=== PATIENT | male | born 1975 | race Caucasian/White ===

== ENCOUNTER 2017-08-22 13:58 | Inpatient (IN) | payer OTHER ==
[2017-08-22 17:41] VITALS: BMI 22.8
--- NOTE | 2017-08-22 18:27 | HP ---
Admission ROS [facility] Chief Complaint: i want to go to rehab Allergies/Adverse Reactions: Allergies Allergy/AdvReac Type Severity Reaction Status Date / Time No Known Allergies Allergy Verified 08/22/17 18:17 History of Present Illness: 42 years old male with long history of pcp nicotine dependence has gerd diabetes ii and depression is admitted to rehab Exam Limitations: No Limitations - Ebola screening Have you traveled outside of the country in the last 21 days: No Have you had contact with anyone from an Ebola affected area: No Have you been sick,other than usual withdrawal symptoms: No Do you have a fever: No - Review of Systems Constitutional: Loss of Appetite, Unintentional Wgt. Loss, Unexplained wgt Loss EENT: reports: No Symptoms Reported Respiratory: reports: No Symptoms reported Cardiac: reports: No Symptoms Reported GI: reports: Poor Appetite, Indigestion : reports: No Symptoms Reported Musculoskeletal: reports: No Symptoms Reported Integumentary: reports: No Symptoms Reported Neuro: reports: No Symptoms reported Endocrine: reports: No Symptoms Reported Hematology: reports: No Symptoms Reported Psychiatric: reports: Judgement Intact, Orientated x3, Anxious, Depressed Other Systems: Reviewed and Negative Patient History - Patient Medical History Hx Anemia: No Hx Asthma: No Hx Chronic Obstructive Pulmonary Disease (COPD): No Hx Cancer: No Hx Cardiac Disorders: No Hx Congestive Heart Failure: No Hx Hypertension: No Hx Hypercholesterolemia: No Hx Pacemaker: No HX Cerebrovascular Accident: No Hx Seizures: No Hx Dementia: No Hx Diabetes: Yes Hx Gastrointestinal Disorders: Yes Hx Liver Disease: No Hx Genitourinary Disorders: No Hx Sexually Transmitted Disorders: No Hx Renal Disease (ESRD): No Hx Thyroid Disease: No Hx Human Immunodeficiency Virus (HIV): No Hx Hepatitis C: No Hx Depression: Yes Hx Suicide Attempt: No Hx Bipolar Disorder: No Hx Schizophrenia: No - Patient Surgical History Past Surgical History: Yes Hx Neurologic Surgery: No Hx Cataract Extraction: No Hx Cardiac Surgery: No Hx Lung Surgery: No Hx Breast Surgery: No Hx Breast Biopsy: No Hx Abdominal Surgery: No Hx Appendectomy: No Hx Cholecystectomy: No Hx Genitourinary Surgery: No Hx Orthopedic Surgery: Yes (low jaw 2008 fx) Anesthesia Reaction: No - PPD History Previous Implant?: Yes Documented Results: Negative w/o proof Implanted On Prior [facility] Admission?: No PPD to be Administered?: Yes - Smoking Cessation Smoking history: Current every day smoker Have you smoked in the past 12 months: Yes Aproximately how many cigarettes per day: 5 Cigars Per Day: 0 Hx Chewing Tobacco Use: No Initiated information on smoking cessation: Yes 'Breaking Loose' booklet given: 08/22/17 - Substance & Tx. History Hx Alcohol Use: No Hx Substance Use: Yes (pcp) Substance Use Type: None Hx Substance Use Treatment: Yes ([facility]) - Substances Abused PCP Route: Smoking Frequency: Daily Amount used: blund Age of first use: 15 Date of Last Use: 08/21/17 Family Disease History - Family Disease History Family Disease History: Diabetes: Father, Mother, Brother, Sister, Heart Disease : Father, Mother, Respiratory: Father Admission Physical Exam S - Vital Signs Vital Signs: Vital Signs - 24 hr 08/22/17 17:38 Temperature 98.2 F Pulse Rate 98 H Respiratory 20 Rate Blood Pressure 133/81 - Physical General Appearance: Yes: No Apparent Distress, Appropriately Dressed, Thin HEENTM: Yes: Hearing grossly Normal, Normal ENT Inspection, Normocephalic, Normal Voice Respiratory: Yes: Chest Non-Tender, Lungs Clear, Normal Breath Sounds, No Respiratory Distress, No Accessory Muscle Use Neck: Yes: Supple, Trachea in good position Breast: Yes: Breasts Symetrical, Other Cardiology: Yes: S1, S2, Tachycardia Abdominal: Yes: Normal Bowel Sounds, Non Tender, Soft Genitourinary: Yes: Within Normal Limits Back: Yes: Normal Inspection Musculoskeletal: Yes: full range of Motion, Gait Steady Extremities: Yes: Normal Inspection, Normal Range of Motion, Non-Tender Neurological: Yes: Fully Oriented, Alert, Motor Strength 5/5, Normal Response, Depressed Affect Integumentary: Yes: Warm Lymphatic: Yes: Within Normal Limits - Diagnostic (1) PCP dependence Current Visit: Yes Status: Acute (2) Nicotine dependence Current Visit: Yes Status: Acute Qualifiers: Nicotine product type: cigarettes Substance use status: in withdrawal Qualified Code(s): F17.213 - Nicotine dependence, cigarettes, with withdrawal (3) Diabetes mellitus, type II, insulin dependent Current Visit: Yes Status: Chronic (4) GERD (gastroesophageal reflux disease) Current Visit: Yes Status: Chronic Qualifiers: Esophagitis presence: without esophagitis Qualified Code(s): K21.9 - Gastro -esophageal reflux disease without esophagitis (5) Anxiety and depression Current Visit: Yes Status: Suspected Cleared for Admission [facility] - Detox or Rehab [facility] Level of Care: Observation Bed Detox Regimen/Protocol: Not Applicable Claeared for Rehab Admission: Yes [facility] Breath Alcohol Content Breath Alcohol Content: 0 Urine Drug Screen - Results Drug Screen Negative: No Urine Drug Screen Results: PCP-Phencyclidine Inpatient Rehab Admission - Initial Determination Are CD services needed?: Yes Free of communicable disease: Yes Not in need of hospitalization: Yes - Rehab Admission Criteria Previous failed treatment: Yes Poor recovery environment: Yes Comorbidities: Yes Lacks judgement: No Patient is meeting Inpatient Rehab admission criteria:: Yes
[2017-08-22] MEDS ORDERED: ACETAMINOPHEN 325 MG TABLET (FP) PO PRN (18:33)
[2017-08-22] MEDS ORDERED: guaiFENesin/D-METHORPHAN HB 10 ML UNIT-DOSE CUPS PO PRN (18:33)
[2017-08-22] MEDS ORDERED: MENTHOL/PHENOL 1 EACH UD MM PRN (18:33)
[2017-08-22] MEDS ORDERED: MAG HYDROX/AL HYDROX/SIMETH 30 ML UNIT-DOSE CUP PO PRN (18:33)
[2017-08-22] MEDS ORDERED: MAGNESIUM CITRATE 300 ML BOTTLE PO PRN (18:33)
[2017-08-22] MEDS ORDERED: LOPERAMIDE HCL 2 MG CAPSULE PO PRN (18:33)
[2017-08-22] MEDS ORDERED: P-EPHED 60MG/TRIPROLIDI 2.5MG TABLET PO PRN (18:33)
[2017-08-22] MEDS ORDERED: MAGNESIUM HYDROX 2400MG/30ML ORAL SUSPENSION 30 ML CUP PO PRN (18:33)
[2017-08-22] MEDS ORDERED: TUBERCULIN PPD 5 TU/0.1ML VIAL ID ONE (20:18)
--- NOTE | 2017-08-22 21:33 | PN ---
[facility] Progress Note Note: Psychiatry Attending's on-call note : Made aware of patient's admission to [address] [place] [address]. Asked to enter orders for abilify 5 mg po daily. Spoke to patient (telephone). Mr Mccollum confirmed medication. Diagnosis : Bipolar Disorder. Last taken on 08/22/17. Pharmacy claims of 08/11/17 : seen. Discussed with patient. No reported history of adverse effects. Abilify 5 mg po daily.Ordered.
[2017-08-22] MEDS: RANITIDINE HCL 150 MG TABLET (FP) PO SCH (21:47)
[2017-08-22] MEDS: THIAMINE HCL 100 MG TABLET (FP) PO SCH (21:47)
--- NOTE | 2017-08-22 23:05 | PN ---
S Progress Note Note: suboxone 8/2 mg sl tid verified by the nurse with the pharmacist last dose 08/21/17 nurse reports that the patient wants to begin suboxone 08/23/17
[2017-08-22 23:24] LABS: URINE APPEARANCE CLEAR; URINE BILIRUBIN NEGATIVE (NEGATIVE); URINE BLOOD NEGATIVE (NEGATIVE); URINE COLOR YELLOW; URINE GLUCOSE (UA) 3+ (NEGATIVE); URINE KETONE NEGATIVE (NEGATIVE); URINE LEUK ESTERASE NEGATIVE (NEGATIVE); URINE NITRITE NEGATIVE (NEGATIVE); URINE PROTEIN NEGATIVE (NEGATIVE); URINE UROBILINOGEN NEGATIVE mg/dL (0.2-1.0)
[2017-08-23] MEDS ORDERED: INSULIN SLIDING SCALE (NOVOLOG) 1 VIAL SQ SCH (07:00)
[2017-08-23] MEDS: INSULIN (NOVOLOG MIX 70/30) 100 UNITS/ML MDV SQ SCH ×2 (07:17→17:17)
--- NOTE | 2017-08-23 09:38 | EKG ---
Test Reason : Blood Pressure : / mmHG Vent. Rate : 096 BPM Atrial Rate : 096 BPM P-R Int : 144 ms QRS Dur : 088 ms QT Int : 322 ms P-R-T Axes : 057 084 015 degrees QTc Int : 406 ms NORMAL SINUS RHYTHM RIGHT ATRIAL ENLARGEMENT BORDERLINE ECG NO PREVIOUS ECGS AVAILABLE Confirmed by MEIR ZHENG, EVGENY ([id number]) on 08/23/2017 9:37:47 AM Referred By: Confirmed By:EVGENY WORLEY MD
[2017-08-23] MEDS: BUPRENORPHINE/NALOXONE 8 MG/2 MG FILM PACKET SL SCH ×3 (09:56→21:31)
[2017-08-23] MEDS: PRENATAL VITAMINS W/ FOLIC ACID TABLET (FP) PO SCH (09:56)
[2017-08-23] MEDS: ARIPiprazole 5 MG TABLET (FP) PO SCH (09:56)
[2017-08-23] MEDS: RANITIDINE HCL 150 MG TABLET (FP) PO SCH ×2 (09:56→21:31)
[2017-08-23] MEDS: NICOTINE 14 MG/24 HOURS TOPICAL PATCH TD SCH (09:57)
[2017-08-23] MEDS: NICOTINE POLACRILEX 2 MG GUM BC PRN ×2 (09:57→20:45)
[2017-08-23 10:23] LABS: HEMATOCRIT 45.6 % (35.4-49); HEMOGLOBIN 14.6 GM/dL (11.7-16.9); MCH 27.9 pg (25.7-33.7); MCHC 31.9 g/dl (32.0-35.9); MEAN CELL VOLUME 87.5 fl (80-96); MEAN PLT VOLUME 8.5 fl (7.5-11.1); PLATELET COUNT 407 K/MM3 (134-434); RBC 5.21 M/mm3 (4.00-5.60); RDW 13.2 % (11.9-15.9); WHITE BLOOD COUNT 14.9 K/mm3 (4.0-10.0)
[2017-08-23 10:28] LABS: CHLORIDE 99 mmol/L (98-107); POTASSIUM 4.4 mmol/L (3.5-5.1); SODIUM 134 mmol/L (136-145)
[2017-08-23 10:38] LABS: ALBUMIN 3.5 g/dl (3.4-5.0); ALK PHOS 145 U/L (45-117); ANION GAP 8 (8-16); BILIRUBIN,TOTAL 0.5 mg/dL (0.2-1.0); BLOOD UREA NITROGEN 12 mg/dL (7-18); CALCIUM 9.1 mg/dL (8.5-10.1); CO2 27 mmol/L (21-32); SGOT/AST 10 U/L (15-37); SGPT/ALT 29 U/L (12-78); TOT PROT 7.1 g/dl (6.4-8.2)
[2017-08-23 11:05] LABS: GLUCOSE,RANDOM 415 mg/dL (74-106)
[2017-08-23] MEDS ORDERED: INSULIN (NOVOLOG) ASPART 100 UNITS/ML 10ML VIAL ONE (17:00)
[2017-08-23] MEDS: INSULIN SLIDING SCALE (NOVOLOG) 1 VIAL SQ SCH (17:01)
[2017-08-23] MEDS: THIAMINE HCL 100 MG TABLET (FP) PO SCH (21:31)
[2017-08-24] MEDS ORDERED: INSULIN (NOVOLOG MIX 70/30) 100 UNITS/ML MDV SQ ONE (05:44)
[2017-08-24] MEDS: BUPRENORPHINE/NALOXONE 8 MG/2 MG FILM PACKET SL SCH ×3 (06:12→21:20)
[2017-08-24] MEDS: NICOTINE POLACRILEX 2 MG GUM BC PRN ×3 (06:19→20:20)
[2017-08-24] MEDS ORDERED: INSULIN (NOVOLOG) ASPART 100 UNITS/ML 10ML VIAL ONE ×2 (06:44→17:08)
[2017-08-24] MEDS: INSULIN SLIDING SCALE (NOVOLOG) 1 VIAL SQ SCH ×2 (06:45→17:01)
[2017-08-24] MEDS: INSULIN (NOVOLOG MIX 70/30) 100 UNITS/ML MDV SQ SCH ×2 (07:34→17:00)
--- NOTE | 2017-08-24 08:02 | HP ---
Psychiatrist Admission - Data Date of interview: 08/24/17 Admission source: [facility] Identifying data: This is the first 5N inpatient rehabilitation admission for this 42 year old male single unemployed and residing with his mother. Medical History: IDDM, acid reflux, hard of hearing in left ear, low jaw surgery in 2007, smokes cigaretets 5 a day. Psychiatric History: Patient reports first psychiatric contact as a child, states he was seen by a psychiatrist to address behavioral issues, was in therapy. In 2013 met with a psychiatrist in outpatient setting to address depression and anxiety, was diagnosed as Bipolar and started treatment with psychotropics, he currently on Prestiq unknow dosage and Abilify 5 mg po daily, he reports tried seroquel trazodone, effexor in the past, reports no history of psychiatric hospitalizations. Sees the psychiatrist at [facility] . Physical/Sexual Abuse/Trauma History: Denies history of sexual, physical and verbal abuse. Additional Comment: x 2 misdeminors, on parole till 2018 for drug possesion. Vital Signs: Vital Signs - 24 hr 08/24/17 08/24/17 00:45 06:41 Temperature 98.5 F Pulse Rate 90 Respiratory 18 18 Rate Blood Pressure 127/80 Allergies/Adverse Reactions: Allergies Allergy/AdvReac Type Severity Reaction Status Date / Time No Known Allergies Allergy Verified 08/22/17 18:17 Date of last physical exam: 08/22/17 Concur with the findings of this exam: Yes - Substance Abuse/Tx History Hx Alcohol Use: No Hx Substance Use: Yes (PCP , started at age of 15, daily 1 blund ) Hx Substance Use Treatment: Yes (in 2012) Mental Status Exam - Mental Status Exam Alert and Oriented to: Time, Place, Person Cognitive Function: Grossly Intact Patient Appearance: Well Groomed Mood: Depressed, Sad, Anxious Affect: Labile (tearful (I miss my mom")) Patient Behavior: Appropriate, Cooperative Speech Pattern: Appropriate Voice Loudness: Normal Thought Disorder: Paranoid Ideation (on and off) Hallucinations: None Suicidal Ideation: None Homicidal Ideation: None Insight/Judgement: Good Sleep: Well Appetite: Good Muscle strength/Tone: Normal Gait/Station: Normal Psychiatric Findings - Problem List ([place] 1, 2,3) (1) Bipolar II disorder Current Visit: Yes Status: Acute (2) Nicotine dependence Current Visit: Yes Status: Acute Qualifiers: Nicotine product type: cigarettes Substance use status: in withdrawal Qualified Code(s): F17.213 - Nicotine dependence, cigarettes, with withdrawal (3) PCP dependence Current Visit: Yes Status: Acute (4) Diabetes mellitus, type II, insulin dependent Current Visit: Yes Status: Chronic (5) GERD (gastroesophageal reflux disease) Current Visit: Yes Status: Chronic Qualifiers: Esophagitis presence: without esophagitis Qualified Code(s): K21.9 - Gastro -esophageal reflux disease without esophagitis - Initial Treatment Plan Initial Treatment Plan: willcontinue Abilify 5 mg po daily, add Effexor 37.5 mg podaily(Prestiq not in formulary), monitor progress as needed.
[2017-08-24] MEDS: PRENATAL VITAMINS W/ FOLIC ACID TABLET (FP) PO SCH (10:08)
[2017-08-24] MEDS: ARIPiprazole 5 MG TABLET (FP) PO SCH (10:08)
[2017-08-24] MEDS: NICOTINE 14 MG/24 HOURS TOPICAL PATCH TD SCH (10:08)
[2017-08-24] MEDS: RANITIDINE HCL 150 MG TABLET (FP) PO SCH ×2 (10:08→21:20)
[2017-08-24] MEDS ORDERED: VENLAFAXINE HCL 37.5 MG TABLET PO ONE (11:43)
[2017-08-24] MEDS: THIAMINE HCL 100 MG TABLET (FP) PO SCH (21:20)
[2017-08-25] MEDS: BUPRENORPHINE/NALOXONE 8 MG/2 MG FILM PACKET SL SCH ×3 (06:33→21:44)
[2017-08-25] MEDS: INSULIN (NOVOLOG MIX 70/30) 100 UNITS/ML MDV SQ SCH ×2 (06:36→16:52)
[2017-08-25] MEDS: INSULIN SLIDING SCALE (NOVOLOG) 1 VIAL SQ SCH ×2 (07:08→16:53)
[2017-08-25] MEDS ORDERED: INSULIN (NOVOLOG) ASPART 100 UNITS/ML 10ML VIAL ONE (07:08)
[2017-08-25] MEDS: PRENATAL VITAMINS W/ FOLIC ACID TABLET (FP) PO SCH (10:01)
[2017-08-25] MEDS: VENLAFAXINE HCL 37.5 MG TABLET PO SCH (10:01)
[2017-08-25] MEDS: NICOTINE 14 MG/24 HOURS TOPICAL PATCH TD SCH (10:01)
[2017-08-25] MEDS: RANITIDINE HCL 150 MG TABLET (FP) PO SCH ×2 (10:01→21:44)
[2017-08-25] MEDS: ARIPiprazole 5 MG TABLET (FP) PO SCH (10:01)
[2017-08-25] MEDS: NICOTINE POLACRILEX 2 MG GUM BC PRN ×2 (10:02→16:50)
--- NOTE | 2017-08-25 11:47 | PN ---
[facility] Progress Note (SOAP) Subjective: c/o nause and vomiting 2/2 gastroparesis from diabetes, he has this every once and awhile Objective: 08/25/17 11:46 Vital Signs - 24 hr 08/25/17 08/25/17 08/25/17 00:30 03:30 07:11 Temperature 98.4 F Pulse Rate 89 Respiratory 18 18 18 Rate Blood Pressure 117/74 Laboratory Tests 08/22/17 08/23/17 08/23/17 21:19 06:00 06:00 WBC 14.9 H RBC 5.21 Hgb 14.6 Hct 45.6 MCV 87.5 MCH 27.9 MCHC 31.9 L RDW 13.2 Plt Count 407 MPV 8.5 Sodium 134 L Potassium 4.4 Chloride 99 Carbon Dioxide 27 Anion Gap 8 BUN 12 Creatinine 1.0 Creat Clearance w eGFR > 60 POC Glucometer Random Glucose 415 H* Calcium 9.1 Total Bilirubin 0.5 AST 10 L ALT 29 Alkaline Phosphatase 145 H Total Protein 7.1 Albumin 3.5 Urine Color Yellow Urine Appearance Clear Urine pH 5.0 Ur Specific [place] 1.028 Urine Protein Negative Urine Glucose (UA) 3+ H Urine Ketones Negative Urine Blood Negative Urine Nitrite Negative Urine Bilirubin Negative Urine Urobilinogen Negative Ur Leukocyte Esterase Negative RPR Titer HIV 1&2 Antibody Screen HIV P24 Antigen 08/23/17 08/23/17 08/23/17 06:00 06:00 06:26 WBC RBC Hgb Hct MCV MCH MCHC RDW Plt Count MPV Sodium Potassium Chloride Carbon Dioxide Anion Gap BUN Creatinine Creat Clearance w eGFR POC Glucometer 308 Random Glucose Calcium Total Bilirubin AST ALT Alkaline Phosphatase Total Protein Albumin Urine Color Urine Appearance Urine pH Ur Specific [place] Urine Protein Urine Glucose (UA) Urine Ketones Urine Blood Urine Nitrite Urine Bilirubin Urine Urobilinogen Ur Leukocyte Esterase RPR Titer Nonreactive HIV 1&2 Antibody Screen Negative HIV P24 Antigen Negative 08/23/17 08/24/17 08/24/17 16:58 06:11 16:59 WBC RBC Hgb Hct MCV MCH MCHC RDW Plt Count MPV Sodium Potassium Chloride Carbon Dioxide Anion Gap BUN Creatinine Creat Clearance w eGFR POC Glucometer 428 175 228 Random Glucose Calcium Total Bilirubin AST ALT Alkaline Phosphatase Total Protein Albumin Urine Color Urine Appearance Urine pH Ur Specific [place] Urine Protein Urine Glucose (UA) Urine Ketones Urine Blood Urine Nitrite Urine Bilirubin Urine Urobilinogen Ur Leukocyte Esterase RPR Titer HIV 1&2 Antibody Screen HIV P24 Antigen 08/25/17 06:31 WBC RBC Hgb Hct MCV MCH MCHC RDW Plt Count MPV Sodium Potassium Chloride Carbon Dioxide Anion Gap BUN Creatinine Creat Clearance w eGFR POC Glucometer 195 Random Glucose Calcium Total Bilirubin AST ALT Alkaline Phosphatase Total Protein Albumin Urine Color Urine Appearance Urine pH Ur Specific [place] Urine Protein Urine Glucose (UA) Urine Ketones Urine Blood Urine Nitrite Urine Bilirubin Urine Urobilinogen Ur Leukocyte Esterase RPR Titer HIV 1&2 Antibody Screen HIV P24 Antigen glucose better comtrolled Assessment: 08/25/17 11:47 gastroparesis 2/2 dm, control glucose, water, repeat labs, zofran for nausea
[2017-08-25] MEDS ORDERED: ONDANSETRON *ODT* 4 MG TABLET SL ONE (12:10)
[2017-08-25] MEDS: ONDANSETRON *ODT* 4 MG TABLET SL PRN (20:11)
[2017-08-25] MEDS: THIAMINE HCL 100 MG TABLET (FP) PO SCH (21:44)
[2017-08-26] MEDS: BUPRENORPHINE/NALOXONE 8 MG/2 MG FILM PACKET SL SCH ×3 (07:07→21:24)
[2017-08-26] MEDS: INSULIN SLIDING SCALE (NOVOLOG) 1 VIAL SQ SCH ×2 (07:29→16:42)
[2017-08-26] MEDS: INSULIN (NOVOLOG MIX 70/30) 100 UNITS/ML MDV SQ SCH ×2 (07:56→16:41)
[2017-08-26] MEDS: RANITIDINE HCL 150 MG TABLET (FP) PO SCH ×2 (09:51→21:24)
[2017-08-26] MEDS: ARIPiprazole 5 MG TABLET (FP) PO SCH (09:51)
[2017-08-26] MEDS: PRENATAL VITAMINS W/ FOLIC ACID TABLET (FP) PO SCH (09:51)
[2017-08-26] MEDS: NICOTINE 14 MG/24 HOURS TOPICAL PATCH TD SCH (09:52)
[2017-08-26] MEDS: VENLAFAXINE HCL 37.5 MG TABLET PO SCH (09:52)
[2017-08-26 10:48] LABS: CHLORIDE 100 mmol/L (98-107); POTASSIUM 4.7 mmol/L (3.5-5.1); SODIUM 134 mmol/L (136-145)
[2017-08-26 10:58] LABS: ANION GAP 5 (8-16); BLOOD UREA NITROGEN 16 mg/dL (7-18); CALCIUM 8.4 mg/dL (8.5-10.1); CO2 29 mmol/L (21-32); CREATININE 0.8 mg/dL (0.7-1.3); GLUCOSE,RANDOM 162 mg/dL (74-106)
[2017-08-26 11:04] LABS: BASO % 0.7 % (0-2.0); EOS % 1.7 % (0-4.5); HEMATOCRIT 42.5 % (35.4-49); LYMPH % 21.6 % (8-40); MCH 28.4 pg (25.7-33.7); MCHC 32.9 g/dl (32.0-35.9); MEAN CELL VOLUME 86.3 fl (80-96); MEAN PLT VOLUME 8.1 fl (7.5-11.1); MONO % 4.4 % (3.8-10.2); NEUT % 71.6 % (42.8-82.8); PLATELET COUNT 372 K/MM3 (134-434); RBC 4.92 M/mm3 (4.00-5.60); RDW 13.5 % (11.9-15.9); WHITE BLOOD COUNT 12.7 K/mm3 (4.0-10.0)
[2017-08-26] MEDS: THIAMINE HCL 100 MG TABLET (FP) PO SCH (21:24)
[2017-08-27] MEDS: BUPRENORPHINE/NALOXONE 8 MG/2 MG FILM PACKET SL SCH ×3 (05:58→21:21)
[2017-08-27] MEDS: INSULIN (NOVOLOG MIX 70/30) 100 UNITS/ML MDV SQ SCH ×2 (05:59→16:47)
[2017-08-27] MEDS: INSULIN SLIDING SCALE (NOVOLOG) 1 VIAL SQ SCH ×2 (06:00→16:48)
[2017-08-27] MEDS: NICOTINE 14 MG/24 HOURS TOPICAL PATCH TD SCH (09:09)
[2017-08-27] MEDS: VENLAFAXINE HCL 37.5 MG TABLET PO SCH (09:09)
[2017-08-27] MEDS: RANITIDINE HCL 150 MG TABLET (FP) PO SCH ×2 (09:09→21:21)
[2017-08-27] MEDS: ARIPiprazole 5 MG TABLET (FP) PO SCH (09:09)
[2017-08-27] MEDS: NICOTINE POLACRILEX 2 MG GUM BC PRN (09:10)
[2017-08-27] MEDS: PRENATAL VITAMINS W/ FOLIC ACID TABLET (FP) PO SCH (09:39)
[2017-08-27] MEDS: ONDANSETRON *ODT* 4 MG TABLET SL PRN (19:51)
[2017-08-27] MEDS: THIAMINE HCL 100 MG TABLET (FP) PO SCH (21:21)
[2017-08-28] MEDS: BUPRENORPHINE/NALOXONE 8 MG/2 MG FILM PACKET SL SCH ×3 (06:35→21:18)
[2017-08-28] MEDS: INSULIN (NOVOLOG MIX 70/30) 100 UNITS/ML MDV SQ SCH ×2 (06:37→16:47)
[2017-08-28] MEDS: INSULIN SLIDING SCALE (NOVOLOG) 1 VIAL SQ SCH ×2 (07:04→16:48)
[2017-08-28] MEDS: ARIPiprazole 5 MG TABLET (FP) PO SCH (09:55)
[2017-08-28] MEDS: PRENATAL VITAMINS W/ FOLIC ACID TABLET (FP) PO SCH (09:55)
[2017-08-28] MEDS: RANITIDINE HCL 150 MG TABLET (FP) PO SCH ×2 (09:55→21:18)
[2017-08-28] MEDS: VENLAFAXINE HCL 37.5 MG TABLET PO SCH (09:55)
[2017-08-28] MEDS: NICOTINE 14 MG/24 HOURS TOPICAL PATCH TD SCH (09:55)
[2017-08-28] MEDS: NICOTINE POLACRILEX 2 MG GUM BC PRN (09:57)
[2017-08-28] MEDS: THIAMINE HCL 100 MG TABLET (FP) PO SCH (21:18)
[2017-08-29] MEDS: BUPRENORPHINE/NALOXONE 8 MG/2 MG FILM PACKET SL SCH ×3 (06:28→21:30)
[2017-08-29] MEDS: INSULIN (NOVOLOG MIX 70/30) 100 UNITS/ML MDV SQ SCH ×2 (06:28→16:59)
[2017-08-29] MEDS: INSULIN SLIDING SCALE (NOVOLOG) 1 VIAL SQ SCH ×2 (06:30→16:58)
[2017-08-29] MEDS: ARIPiprazole 5 MG TABLET (FP) PO SCH (10:23)
[2017-08-29] MEDS: RANITIDINE HCL 150 MG TABLET (FP) PO SCH ×2 (10:23→21:30)
[2017-08-29] MEDS: VENLAFAXINE HCL 37.5 MG TABLET PO SCH (10:23)
[2017-08-29] MEDS: PRENATAL VITAMINS W/ FOLIC ACID TABLET (FP) PO SCH (10:23)
[2017-08-29] MEDS: NICOTINE 14 MG/24 HOURS TOPICAL PATCH TD SCH (10:24)
[2017-08-29] MEDS ORDERED: INSULIN (NOVOLOG) ASPART 100 UNITS/ML 10ML VIAL ONE (16:57)
[2017-08-29] MEDS: THIAMINE HCL 100 MG TABLET (FP) PO SCH (21:30)
[2017-08-30] MEDS: BUPRENORPHINE/NALOXONE 8 MG/2 MG FILM PACKET SL SCH ×3 (05:56→21:29)
[2017-08-30] MEDS: INSULIN (NOVOLOG MIX 70/30) 100 UNITS/ML MDV SQ SCH ×2 (07:54→17:22)
[2017-08-30] MEDS: INSULIN SLIDING SCALE (NOVOLOG) 1 VIAL SQ SCH ×2 (07:55→17:25)
[2017-08-30] MEDS: PRENATAL VITAMINS W/ FOLIC ACID TABLET (FP) PO SCH (10:20)
[2017-08-30] MEDS: RANITIDINE HCL 150 MG TABLET (FP) PO SCH ×2 (10:20→21:28)
[2017-08-30] MEDS: VENLAFAXINE HCL 37.5 MG TABLET PO SCH (10:20)
[2017-08-30] MEDS: ARIPiprazole 5 MG TABLET (FP) PO SCH (10:20)
[2017-08-30] MEDS: NICOTINE 14 MG/24 HOURS TOPICAL PATCH TD SCH (10:21)
[2017-08-30] MEDS: TOLNAFTATE 1% CREAM 15 GM TUBE TP SCH ×2 (14:41→21:29)
[2017-08-30] MEDS: BACITRACIN 0.9 GM PACKET TP SCH (14:41)
[2017-08-30] MEDS: THIAMINE HCL 100 MG TABLET (FP) PO SCH (21:28)
[2017-08-31] MEDS: BUPRENORPHINE/NALOXONE 8 MG/2 MG FILM PACKET SL SCH ×3 (06:08→21:26)
[2017-08-31] MEDS: INSULIN (NOVOLOG MIX 70/30) 100 UNITS/ML MDV SQ SCH ×2 (07:24→16:40)
[2017-08-31] MEDS: INSULIN SLIDING SCALE (NOVOLOG) 1 VIAL SQ SCH ×2 (07:25→16:41)
[2017-08-31] MEDS: VENLAFAXINE HCL 37.5 MG TABLET PO SCH (10:08)
[2017-08-31] MEDS: PRENATAL VITAMINS W/ FOLIC ACID TABLET (FP) PO SCH (10:08)
[2017-08-31] MEDS: RANITIDINE HCL 150 MG TABLET (FP) PO SCH ×2 (10:08→21:25)
[2017-08-31] MEDS: ARIPiprazole 5 MG TABLET (FP) PO SCH (10:08)
[2017-08-31] MEDS: TOLNAFTATE 1% CREAM 15 GM TUBE TP SCH ×2 (10:09→21:26)
[2017-08-31] MEDS: NICOTINE POLACRILEX 2 MG GUM BC PRN (10:09)
[2017-08-31] MEDS: NICOTINE 14 MG/24 HOURS TOPICAL PATCH TD SCH (10:09)
[2017-08-31] MEDS: BACITRACIN 0.9 GM PACKET TP SCH (10:09)
[2017-08-31] MEDS ORDERED: SIMETHICONE 80 MG TAB.CHEW (FP) PO PRN (11:39)
--- NOTE | 2017-08-31 11:42 | PN ---
[facility] Progress Note (SOAP) Subjective: C/O CONTINUED INDIGESTION, ZOFRAN NOT WORKING, FTOENAIL FELL OFF STIL PAINFULL Objective: 08/31/17 11:40 Vital Signs - 24 hr 08/30/17 08/31/17 08/31/17 23:09 00:30 03:30 Temperature Pulse Rate 77 Respiratory 18 18 Rate Blood Pressure 104/70 08/31/17 07:19 Temperature 97.8 F Pulse Rate 74 Respiratory 18 Rate Blood Pressure 122/68 Laboratory Tests 08/22/17 08/23/17 08/23/17 21:19 06:00 06:00 WBC 14.9 H RBC 5.21 Hgb 14.6 Hct 45.6 MCV 87.5 MCH 27.9 MCHC 31.9 L RDW 13.2 Plt Count 407 MPV 8.5 Neutrophils % Lymphocytes % Monocytes % Eosinophils % Basophils % Sodium 134 L Potassium 4.4 Chloride 99 Carbon Dioxide 27 Anion Gap 8 BUN 12 Creatinine 1.0 Creat Clearance w eGFR > 60 POC Glucometer Random Glucose 415 H* Calcium 9.1 Total Bilirubin 0.5 AST 10 L ALT 29 Alkaline Phosphatase 145 H Total Protein 7.1 Albumin 3.5 Urine Color Yellow Urine Appearance Clear Urine pH 5.0 Ur Specific [place] 1.028 Urine Protein Negative Urine Glucose (UA) 3+ H Urine Ketones Negative Urine Blood Negative Urine Nitrite Negative Urine Bilirubin Negative Urine Urobilinogen Negative Ur Leukocyte Esterase Negative RPR Titer HIV 1&2 Antibody Screen HIV P24 Antigen 08/23/17 08/23/17 08/23/17 06:00 06:00 06:26 WBC RBC Hgb Hct MCV MCH MCHC RDW Plt Count MPV Neutrophils % Lymphocytes % Monocytes % Eosinophils % Basophils % Sodium Potassium Chloride Carbon Dioxide Anion Gap BUN Creatinine Creat Clearance w eGFR POC Glucometer 308 Random Glucose Calcium Total Bilirubin AST ALT Alkaline Phosphatase Total Protein Albumin Urine Color Urine Appearance Urine pH Ur Specific [place] Urine Protein Urine Glucose (UA) Urine Ketones Urine Blood Urine Nitrite Urine Bilirubin Urine Urobilinogen Ur Leukocyte Esterase RPR Titer Nonreactive HIV 1&2 Antibody Screen Negative HIV P24 Antigen Negative 08/23/17 08/24/17 08/24/17 16:58 06:11 16:59 WBC RBC Hgb Hct MCV MCH MCHC RDW Plt Count MPV Neutrophils % Lymphocytes % Monocytes % Eosinophils % Basophils % Sodium Potassium Chloride Carbon Dioxide Anion Gap BUN Creatinine Creat Clearance w eGFR POC Glucometer 428 175 228 Random Glucose Calcium Total Bilirubin AST ALT Alkaline Phosphatase Total Protein Albumin Urine Color Urine Appearance Urine pH Ur Specific [place] Urine Protein Urine Glucose (UA) Urine Ketones Urine Blood Urine Nitrite Urine Bilirubin Urine Urobilinogen Ur Leukocyte Esterase RPR Titer HIV 1&2 Antibody Screen HIV P24 Antigen 08/25/17 08/25/17 08/26/17 06:31 16:49 05:42 WBC RBC Hgb Hct MCV MCH MCHC RDW Plt Count MPV Neutrophils % Lymphocytes % Monocytes % Eosinophils % Basophils % Sodium Potassium Chloride Carbon Dioxide Anion Gap BUN Creatinine Creat Clearance w eGFR POC Glucometer 195 181 94 Random Glucose Calcium Total Bilirubin AST ALT Alkaline Phosphatase Total Protein Albumin Urine Color Urine Appearance Urine pH Ur Specific [place] Urine Protein Urine Glucose (UA) Urine Ketones Urine Blood Urine Nitrite Urine Bilirubin Urine Urobilinogen Ur Leukocyte Esterase RPR Titer HIV 1&2 Antibody Screen HIV P24 Antigen 08/26/17 08/26/17 08/26/17 08:00 08:00 16:41 WBC 12.7 H RBC 4.92 Hgb 14.0 Hct 42.5 MCV 86.3 MCH 28.4 MCHC 32.9 RDW 13.5 Plt Count 372 MPV 8.1 Neutrophils % 71.6 Lymphocytes % 21.6 Monocytes % 4.4 Eosinophils % 1.7 Basophils % 0.7 Sodium 134 L Potassium 4.7 Chloride 100 Carbon Dioxide 29 Anion Gap 5 L BUN 16 D Creatinine 0.8 Creat Clearance w eGFR POC Glucometer 99 Random Glucose 162 H D Calcium 8.4 L Total Bilirubin AST ALT Alkaline Phosphatase Total Protein Albumin Urine Color Urine Appearance Urine pH Ur Specific [place] Urine Protein Urine Glucose (UA) Urine Ketones Urine Blood Urine Nitrite Urine Bilirubin Urine Urobilinogen Ur Leukocyte Esterase RPR Titer HIV 1&2 Antibody Screen HIV P24 Antigen 08/27/17 08/27/17 08/27/17 05:57 09:08 16:47 WBC RBC Hgb Hct MCV MCH MCHC RDW Plt Count MPV Neutrophils % Lymphocytes % Monocytes % Eosinophils % Basophils % Sodium Potassium Chloride Carbon Dioxide Anion Gap BUN Creatinine Creat Clearance w eGFR POC Glucometer 121 151 139 Random Glucose Calcium Total Bilirubin AST ALT Alkaline Phosphatase Total Protein Albumin Urine Color Urine Appearance Urine pH Ur Specific [place] Urine Protein Urine Glucose (UA) Urine Ketones Urine Blood Urine Nitrite Urine Bilirubin Urine Urobilinogen Ur Leukocyte Esterase RPR Titer HIV 1&2 Antibody Screen HIV P24 Antigen 08/28/17 08/28/17 08/29/17 06:34 16:47 06:28 WBC RBC Hgb Hct MCV MCH MCHC RDW Plt Count MPV Neutrophils % Lymphocytes % Monocytes % Eosinophils % Basophils % Sodium Potassium Chloride Carbon Dioxide Anion Gap BUN Creatinine Creat Clearance w eGFR POC Glucometer 140 191 152 Random Glucose Calcium Total Bilirubin AST ALT Alkaline Phosphatase Total Protein Albumin Urine Color Urine Appearance Urine pH Ur Specific [place] Urine Protein Urine Glucose (UA) Urine Ketones Urine Blood Urine Nitrite Urine Bilirubin Urine Urobilinogen Ur Leukocyte Esterase RPR Titer HIV 1&2 Antibody Screen HIV P24 Antigen 08/29/17 08/30/17 08/30/17 16:55 05:57 16:34 WBC RBC Hgb Hct MCV MCH MCHC RDW Plt Count MPV Neutrophils % Lymphocytes % Monocytes % Eosinophils % Basophils % Sodium Potassium Chloride Carbon Dioxide Anion Gap BUN Creatinine Creat Clearance w eGFR POC Glucometer 222 107 134 Random Glucose Calcium Total Bilirubin AST ALT Alkaline Phosphatase Total Protein Albumin Urine Color Urine Appearance Urine pH Ur Specific [place] Urine Protein Urine Glucose (UA) Urine Ketones Urine Blood Urine Nitrite Urine Bilirubin Urine Urobilinogen Ur Leukocyte Esterase RPR Titer HIV 1&2 Antibody Screen HIV P24 Antigen 08/31/17 06:06 WBC RBC Hgb Hct MCV MCH MCHC RDW Plt Count MPV Neutrophils % Lymphocytes % Monocytes % Eosinophils % Basophils % Sodium Potassium Chloride Carbon Dioxide Anion Gap BUN Creatinine Creat Clearance w eGFR POC Glucometer 171 Random Glucose Calcium Total Bilirubin AST ALT Alkaline Phosphatase Total Protein Albumin Urine Color Urine Appearance Urine pH Ur Specific [place] Urine Protein Urine Glucose (UA) Urine Ketones Urine Blood Urine Nitrite Urine Bilirubin Urine Urobilinogen Ur Leukocyte Esterase RPR Titer HIV 1&2 Antibody Screen HIV P24 Antigen R OTENAIL FELL OFF, NO INFECTION NOTED Assessment: 08/31/17 11:41 GASTROPARESIS INDIGESTION - D/C ZOFRAN CONT ZANTAC, START [PRN SIMETHICONE, BACITACIN DRESSING TO TOENAIL DAILY.
[2017-08-31] MEDS ORDERED: INSULIN (NOVOLOG) ASPART 100 UNITS/ML 10ML VIAL ONE (16:52)
[2017-08-31] MEDS: THIAMINE HCL 100 MG TABLET (FP) PO SCH (21:25)
[2017-09-01] MEDS: BUPRENORPHINE/NALOXONE 8 MG/2 MG FILM PACKET SL SCH ×3 (06:35→21:23)
[2017-09-01] MEDS: INSULIN (NOVOLOG MIX 70/30) 100 UNITS/ML MDV SQ SCH ×2 (06:35→17:09)
[2017-09-01] MEDS: INSULIN SLIDING SCALE (NOVOLOG) 1 VIAL SQ SCH ×2 (06:36→17:09)
[2017-09-01] MEDS: TOLNAFTATE 1% CREAM 15 GM TUBE TP SCH ×2 (10:01→21:23)
[2017-09-01] MEDS: BACITRACIN 0.9 GM PACKET TP SCH (10:01)
[2017-09-01] MEDS: VENLAFAXINE HCL 37.5 MG TABLET PO SCH (10:01)
[2017-09-01] MEDS: RANITIDINE HCL 150 MG TABLET (FP) PO SCH ×2 (10:01→21:22)
[2017-09-01] MEDS: NICOTINE 14 MG/24 HOURS TOPICAL PATCH TD SCH (10:01)
[2017-09-01] MEDS: PRENATAL VITAMINS W/ FOLIC ACID TABLET (FP) PO SCH (10:01)
[2017-09-01] MEDS: ARIPiprazole 5 MG TABLET (FP) PO SCH (10:01)
[2017-09-01] MEDS: NICOTINE POLACRILEX 2 MG GUM BC PRN (10:03)
[2017-09-01] MEDS ORDERED: INSULIN (NOVOLOG) ASPART 100 UNITS/ML 10ML VIAL ONE (20:21)
[2017-09-01] MEDS: THIAMINE HCL 100 MG TABLET (FP) PO SCH (21:22)
[2017-09-02] MEDS: INSULIN (NOVOLOG MIX 70/30) 100 UNITS/ML MDV SQ SCH ×2 (06:30→16:36)
[2017-09-02] MEDS: BUPRENORPHINE/NALOXONE 8 MG/2 MG FILM PACKET SL SCH ×3 (06:30→21:12)
[2017-09-02] MEDS: INSULIN SLIDING SCALE (NOVOLOG) 1 VIAL SQ SCH ×2 (06:31→16:37)
[2017-09-02] MEDS: PRENATAL VITAMINS W/ FOLIC ACID TABLET (FP) PO SCH (09:55)
[2017-09-02] MEDS: RANITIDINE HCL 150 MG TABLET (FP) PO SCH ×2 (09:55→21:13)
[2017-09-02] MEDS: BACITRACIN 0.9 GM PACKET TP SCH (09:55)
[2017-09-02] MEDS: NICOTINE 14 MG/24 HOURS TOPICAL PATCH TD SCH (09:55)
[2017-09-02] MEDS: ARIPiprazole 5 MG TABLET (FP) PO SCH (09:55)
[2017-09-02] MEDS: VENLAFAXINE HCL 37.5 MG TABLET PO SCH (09:55)
[2017-09-02] MEDS: TOLNAFTATE 1% CREAM 15 GM TUBE TP SCH ×2 (09:57→21:14)
[2017-09-02] MEDS: NICOTINE POLACRILEX 2 MG GUM BC PRN (09:57)
[2017-09-02] MEDS: THIAMINE HCL 100 MG TABLET (FP) PO SCH (21:13)
[2017-09-03] MEDS: BUPRENORPHINE/NALOXONE 8 MG/2 MG FILM PACKET SL SCH ×3 (06:15→21:13)
[2017-09-03] MEDS: INSULIN (NOVOLOG MIX 70/30) 100 UNITS/ML MDV SQ SCH ×2 (07:12→16:35)
[2017-09-03] MEDS: INSULIN SLIDING SCALE (NOVOLOG) 1 VIAL SQ SCH ×2 (07:12→16:36)
[2017-09-03] MEDS: VENLAFAXINE HCL 37.5 MG TABLET PO SCH (09:48)
[2017-09-03] MEDS: RANITIDINE HCL 150 MG TABLET (FP) PO SCH ×2 (09:48→21:13)
[2017-09-03] MEDS: ARIPiprazole 5 MG TABLET (FP) PO SCH (09:48)
[2017-09-03] MEDS: BACITRACIN 0.9 GM PACKET TP SCH (09:49)
[2017-09-03] MEDS: PRENATAL VITAMINS W/ FOLIC ACID TABLET (FP) PO SCH (09:49)
[2017-09-03] MEDS: TOLNAFTATE 1% CREAM 15 GM TUBE TP SCH ×2 (09:49→21:14)
[2017-09-03] MEDS: NICOTINE 14 MG/24 HOURS TOPICAL PATCH TD SCH (09:49)
[2017-09-03] MEDS: THIAMINE HCL 100 MG TABLET (FP) PO SCH (21:13)
[2017-09-04] MEDS: BUPRENORPHINE/NALOXONE 8 MG/2 MG FILM PACKET SL SCH ×3 (06:23→21:33)
[2017-09-04] MEDS: INSULIN (NOVOLOG MIX 70/30) 100 UNITS/ML MDV SQ SCH ×2 (06:23→16:49)
[2017-09-04] MEDS: INSULIN SLIDING SCALE (NOVOLOG) 1 VIAL SQ SCH ×2 (06:24→16:49)
[2017-09-04] MEDS: ARIPiprazole 5 MG TABLET (FP) PO SCH (10:15)
[2017-09-04] MEDS: RANITIDINE HCL 150 MG TABLET (FP) PO SCH ×2 (10:15→21:32)
[2017-09-04] MEDS: NICOTINE 14 MG/24 HOURS TOPICAL PATCH TD SCH (10:15)
[2017-09-04] MEDS: NICOTINE POLACRILEX 2 MG GUM BC PRN ×2 (10:15→16:50)
[2017-09-04] MEDS: TOLNAFTATE 1% CREAM 15 GM TUBE TP SCH ×2 (10:15→21:34)
[2017-09-04] MEDS: VENLAFAXINE HCL 37.5 MG TABLET PO SCH (10:15)
[2017-09-04] MEDS: PRENATAL VITAMINS W/ FOLIC ACID TABLET (FP) PO SCH (10:15)
[2017-09-04] MEDS: BACITRACIN 0.9 GM PACKET TP SCH (10:16)
[2017-09-04] MEDS ORDERED: INSULIN (NOVOLOG) ASPART 100 UNITS/ML 10ML VIAL ONE (16:49)
[2017-09-04] MEDS: THIAMINE HCL 100 MG TABLET (FP) PO SCH (21:33)
[2017-09-05] MEDS: BUPRENORPHINE/NALOXONE 8 MG/2 MG FILM PACKET SL SCH ×3 (06:09→21:31)
[2017-09-05] MEDS: INSULIN (NOVOLOG MIX 70/30) 100 UNITS/ML MDV SQ SCH ×2 (07:54→16:40)
[2017-09-05] MEDS: INSULIN SLIDING SCALE (NOVOLOG) 1 VIAL SQ SCH ×2 (07:55→16:42)
[2017-09-05] MEDS: NICOTINE 14 MG/24 HOURS TOPICAL PATCH TD SCH (10:06)
[2017-09-05] MEDS: VENLAFAXINE HCL 37.5 MG TABLET PO SCH (10:06)
[2017-09-05] MEDS: PRENATAL VITAMINS W/ FOLIC ACID TABLET (FP) PO SCH (10:06)
[2017-09-05] MEDS: RANITIDINE HCL 150 MG TABLET (FP) PO SCH ×2 (10:06→21:31)
[2017-09-05] MEDS: ARIPiprazole 5 MG TABLET (FP) PO SCH (10:06)
[2017-09-05] MEDS: TOLNAFTATE 1% CREAM 15 GM TUBE TP SCH ×2 (10:07→21:33)
[2017-09-05] MEDS: BACITRACIN 0.9 GM PACKET TP SCH (10:07)
[2017-09-05] MEDS ORDERED: VENLAFAXINE HCL 37.5 MG TABLET PO SCH (10:50)
--- NOTE | 2017-09-05 11:07 | PN ---
Psychiatric Progress Note Vital Signs: Vital Signs Period Temp Pulse Resp BP Sys/Simeon Pulse Ox Last 24 Hr 97.9 F 83-96 -18 120-121/67-74 Date of Session: 09/05/17 Chief Complaint:: "depressed" HPI: Patient is addressing PCP, nicotine dependence comorbid Bipolar II diosrder. ROS: DM medically managed. Current Medications: Active Medications Generic Name Dose Route Start Last Admin Trade Name Freq PRN Reason Stop Dose Admin Acetaminophen 650 mg 08/22/17 18:33 Tylenol - PO Q4H PRN PAIN Al Hydroxide/Mg Hydroxide 30 ml 08/22/17 18:33 08/25/17 07:51 Mylanta Oral Suspension - PO 30 ml Q6H PRN Administration DYSPEPSIA Aripiprazole 5 mg 08/23/17 10:00 09/05/17 10:06 Abilify PO 5 mg DAILY [place] Administration Bacitracin 0.9 gm 08/30/17 14:15 09/05/17 10:07 Bacitracin - TP 0.9 gm DAILY [place] Administration Buprenorphine/Naloxone 1 each 08/31/17 06:00 09/05/17 06:09 Suboxone 8mg/2mg Sl Film - SL 09/07/17 05:59 1 each TID [place] Administration Diphenhydramine HCl 50 mg 09/05/17 22:00 Benadryl - PO HS [place] Eucalyptus/Menthol/Phenol/Sorbitol 1 each 08/22/17 18:33 Cepastat Lozenge - MM Q4H PRN SORE THROAT Guaifenesin 10 ml 08/22/17 18:33 Robitussin Dm - PO Q6H PRN COUGH Insulin Aspart 20 units 08/23/17 07:00 09/05/17 07:54 Novolog Mix 70/30 Vial SQ 20 units BIDAC [place] Administration Insulin Aspart 1 vial 08/23/17 13:41 09/05/17 07:55 Novolog Vial Sliding Scale - SQ Not Given BIDAC [place] Protocol Loperamide HCl 4 mg 08/22/17 18:33 Imodium - PO Q6H PRN DIARRHEA Magnesium Citrate 300 ml 08/22/17 18:33 Citroma - PO Q48H PRN CONSTIPATION Magnesium Hydroxide 30 ml 08/22/17 18:33 Milk Of Magnesia - PO DAILY PRN CONSTIPATION Nicotine 14 mg 08/23/17 10:00 09/05/17 10:06 Nicoderm Patch - TD Not Given DAILY [place] Nicotine Polacrilex 2 mg 08/22/17 18:33 09/04/17 16:50 Nicorette Gum - BC 2 mg Q2H PRN Administration NICOTINE REPLACEMENT RX Multivit/Folic Acid/Iron 1 tab 08/23/17 10:00 09/05/17 10:06 Vitamins ([facility]) - PO 1 tab DAILY [place] Administration Pseudoephedrine/Triprolidine 1 combo 08/22/17 18:33 Actifed - PO TID PRN NASAL CONGESTION Ranitidine HCl 150 mg 08/22/17 22:00 09/05/17 10:06 Zantac - PO 150 mg BID [place] Administration Simethicone 80 mg 08/31/17 11:39 Mylicon - PO Q4H PRN INDIGESTION Thiamine HCl 100 mg 08/22/17 22:00 09/04/17 21:33 Vitamin B1 - PO 100 mg HS [place] Administration Tolnaftate 1 applic 08/30/17 14:00 09/05/17 10:07 Tinactin 1% Cream - TP 1 applic BID [place] Administration Venlafaxine HCl 75 mg 09/05/17 10:50 Effexor - PO DAILY [facility] Medication(s) Change(s): increase Effexor 75 mg po daily, add Benadryl 50 mg po hs. Current Side Effect: No Lab tests ordered: No Lab tests reviewed: Yes Provider note:: Patient was seen today, reports has been feeling depressed, sad and missing his mother, he denies suicidal and homicildal thoughts, but reports feling lonely, he also discussed his aftercare plans. Reviewed medications with the patient, discussed properties of prestiq and effexor, will increase effexor 75 mg po daily, emotional supports provided, will continue to monitor progress. Total face to face time:: 25 Mental Status Exam - Mental Status Exam Alert and Oriented to: Time, Place, Person Cognitive Function: Grossly Intact Patient Appearance: Well Groomed Mood: Apathetic, Depressed, Sad Affect: Mood Congruent, Blunted Patient Behavior: Appropriate, Cooperative Speech Pattern: Clear, Appropriate Voice Loudness: Normal Thought Process: Intact, Goal Oriented Thought Disorder: Not Present Hallucinations: Denies Suicidal Ideation: Denies Homicidal Ideation: Denies Insight/Judgement: Fair Sleep: Poorly Appetite: Fair Muscle strength/Tone: Normal Gait/Station: Normal Psychiatric Treatment Plan - Problem List (1) Bipolar II disorder Current Visit: Yes (2) Nicotine dependence Current Visit: Yes Qualifiers: Nicotine product type: cigarettes Substance use status: in withdrawal Qualified Code(s): F17.213 - Nicotine dependence, cigarettes, with withdrawal (3) PCP dependence Current Visit: Yes (4) Diabetes mellitus, type II, insulin dependent Current Visit: Yes (5) GERD (gastroesophageal reflux disease) Current Visit: Yes Qualifiers: Esophagitis presence: without esophagitis Qualified Code(s): K21.9 - Gastro -esophageal reflux disease without esophagitis
[2017-09-05] MEDS ORDERED: INSULIN (NOVOLOG) ASPART 100 UNITS/ML 10ML VIAL ONE (19:37)
[2017-09-05] MEDS: THIAMINE HCL 100 MG TABLET (FP) PO SCH (21:31)
[2017-09-05] MEDS: diphenhydrAMINE HCL 50 MG CAPSULE PO SCH (21:31)
[2017-09-05] MEDS: NICOTINE POLACRILEX 2 MG GUM BC PRN (21:34)
[2017-09-06] MEDS: BUPRENORPHINE/NALOXONE 8 MG/2 MG FILM PACKET SL SCH ×3 (06:08→21:25)
[2017-09-06] MEDS ORDERED: INSULIN (NOVOLOG) ASPART 100 UNITS/ML 10ML VIAL ONE (06:14)
[2017-09-06] MEDS: INSULIN (NOVOLOG MIX 70/30) 100 UNITS/ML MDV SQ SCH ×2 (06:15→17:01)
[2017-09-06] MEDS: INSULIN SLIDING SCALE (NOVOLOG) 1 VIAL SQ SCH ×2 (06:15→17:01)
[2017-09-06] MEDS: PRENATAL VITAMINS W/ FOLIC ACID TABLET (FP) PO SCH (10:23)
[2017-09-06] MEDS: TOLNAFTATE 1% CREAM 15 GM TUBE TP SCH ×2 (10:23→21:26)
[2017-09-06] MEDS: BACITRACIN 0.9 GM PACKET TP SCH (10:23)
[2017-09-06] MEDS: ARIPiprazole 5 MG TABLET (FP) PO SCH (10:23)
[2017-09-06] MEDS: RANITIDINE HCL 150 MG TABLET (FP) PO SCH ×2 (10:23→21:25)
[2017-09-06] MEDS: NICOTINE 14 MG/24 HOURS TOPICAL PATCH TD SCH (10:23)
[2017-09-06] MEDS: VENLAFAXINE HCL 75 MG TABLET PO SCH (10:24)
[2017-09-06] MEDS: NICOTINE POLACRILEX 2 MG GUM BC PRN (10:25)
[2017-09-06] MEDS: diphenhydrAMINE HCL 50 MG CAPSULE PO SCH (21:25)
[2017-09-06] MEDS: THIAMINE HCL 100 MG TABLET (FP) PO SCH (21:26)
[2017-09-07] MEDS ORDERED: BUPRENORPHINE/NALOXONE 8 MG/2 MG FILM PACKET SL SCH ×2 (06:00→14:00)
[2017-09-07] MEDS: INSULIN (NOVOLOG MIX 70/30) 100 UNITS/ML MDV SQ SCH (06:17)
[2017-09-07] MEDS: INSULIN SLIDING SCALE (NOVOLOG) 1 VIAL SQ SCH (06:17)
[2017-09-07 06:54] VITALS: BP 114/78; PULSE 80; TEMP 98.4
[2017-09-07] MEDS: PRENATAL VITAMINS W/ FOLIC ACID TABLET (FP) PO SCH (10:11)
[2017-09-07] MEDS: ARIPiprazole 5 MG TABLET (FP) PO SCH (10:11)
[2017-09-07] MEDS: NICOTINE 14 MG/24 HOURS TOPICAL PATCH TD SCH (10:13)
[2017-09-07] MEDS: BACITRACIN 0.9 GM PACKET TP SCH (10:13)
[2017-09-07] MEDS: TOLNAFTATE 1% CREAM 15 GM TUBE TP SCH (10:13)
[2017-09-07] MEDS: VENLAFAXINE HCL 75 MG TABLET PO SCH (10:13)
[2017-09-07] MEDS: RANITIDINE HCL 150 MG TABLET (FP) PO SCH (10:14)
--- NOTE | 2017-09-07 10:44 | PN ---
Psychiatric Progress Note Vital Signs: Vital Signs Period Temp Pulse Resp BP Sys/Simeon Pulse Ox Last 24 Hr 98.4 F 80 16-18 114/78 Date of Session: 09/07/17 Chief Complaint:: discharge visit HPI: Patient is addressing PCP, nicotine dependence comorbid Bipolar II diosrder. ROS: DM medically managed. Current Medications: Active Medications Generic Name Dose Route Start Last Admin Trade Name Freq PRN Reason Stop Dose Admin Acetaminophen 650 mg 08/22/17 18:33 Tylenol - PO Q4H PRN PAIN Al Hydroxide/Mg Hydroxide 30 ml 08/22/17 18:33 08/25/17 07:51 Mylanta Oral Suspension - PO 30 ml Q6H PRN Administration DYSPEPSIA Aripiprazole 5 mg 08/23/17 10:00 09/07/17 10:11 Abilify PO 5 mg DAILY [place] Administration Bacitracin 0.9 gm 08/30/17 14:15 09/07/17 10:13 Bacitracin - TP 0.9 gm DAILY [place] Administration Buprenorphine/Naloxone 1 each 09/07/17 06:00 09/07/17 06:16 Suboxone 8mg/2mg Sl Film - SL 09/14/17 05:59 1 each TID [place] Administration Diphenhydramine HCl 50 mg 09/05/17 22:00 09/06/17 21:25 Benadryl - PO 50 mg HS [place] Administration Eucalyptus/Menthol/Phenol/Sorbitol 1 each 08/22/17 18:33 Cepastat Lozenge - MM Q4H PRN SORE THROAT Guaifenesin 10 ml 08/22/17 18:33 Robitussin Dm - PO Q6H PRN COUGH Insulin Aspart 20 units 08/23/17 07:00 09/07/17 06:17 Novolog Mix 70/30 Vial SQ 20 units BIDAC [place] Administration Insulin Aspart 1 vial 08/23/17 13:41 09/07/17 06:17 Novolog Vial Sliding Scale - SQ Not Given BIDAC [place] Protocol Loperamide HCl 4 mg 08/22/17 18:33 09/06/17 09:20 Imodium - PO 4 mg Q6H PRN Administration DIARRHEA Magnesium Citrate 300 ml 08/22/17 18:33 Citroma - PO Q48H PRN CONSTIPATION Magnesium Hydroxide 30 ml 08/22/17 18:33 Milk Of Magnesia - PO DAILY PRN CONSTIPATION Nicotine 14 mg 08/23/17 10:00 09/07/17 10:13 Nicoderm Patch - TD Not Given DAILY [place] Nicotine Polacrilex 2 mg 08/22/17 18:33 09/06/17 10:25 Nicorette Gum - BC 2 mg Q2H PRN Administration NICOTINE REPLACEMENT RX Multivit/Folic Acid/Iron 1 tab 08/23/17 10:00 09/07/17 10:11 Vitamins (Sjr) - PO 1 tab DAILY [place] Administration Pseudoephedrine/Triprolidine 1 combo 08/22/17 18:33 Actifed - PO TID PRN NASAL CONGESTION Ranitidine HCl 150 mg 08/22/17 22:00 09/07/17 10:14 Zantac - PO 150 mg BID [place] Administration Simethicone 80 mg 08/31/17 11:39 Mylicon - PO Q4H PRN INDIGESTION Thiamine HCl 100 mg 08/22/17 22:00 09/06/17 21:26 Vitamin B1 - PO 100 mg HS [place] Administration Tolnaftate 1 applic 08/30/17 14:00 09/07/17 10:13 Tinactin 1% Cream - TP Not Given BID [place] Venlafaxine HCl 75 mg 09/06/17 10:00 09/07/17 10:13 Effexor - PO 75 mg DAILY [place] Administration Current Side Effect: No Lab tests ordered: No Lab tests reviewed: Yes Provider note:: Patient has completed today his treatment and met his goals, will continue to address his issues at [facility]. He gaine insights into his problems and motivated to continue maintian abstinence. He identified triggers for his relapses and learned coping skills during his treatment. Medications well tolerated, patient reports has been feeling energetic and hopefull. Rx provided for 30 days suplly. He will f/u by his psychiatrist [facility] . He is stable for discharge today. Total face to face time:: 15 Mental Status Exam - Mental Status Exam Alert and Oriented to: Time, Place, Person Cognitive Function: Good Patient Appearance: Well Groomed Mood: Hopeful, Euthymic Affect: Appropriate Patient Behavior: Appropriate, Cooperative Speech Pattern: Clear, Appropriate Voice Loudness: Normal Thought Process: Intact, Goal Oriented Thought Disorder: Not Present Hallucinations: None, Denies Suicidal Ideation: None, Denies Homicidal Ideation: None, Denies Insight/Judgement: Good Sleep: Well Appetite: Good Muscle strength/Tone: Normal Gait/Station: Normal Psychiatric Treatment Plan - Problem List (1) Bipolar II disorder Current Visit: Yes (2) Nicotine dependence Current Visit: Yes Qualifiers: Nicotine product type: cigarettes Substance use status: in withdrawal Qualified Code(s): F17.213 - Nicotine dependence, cigarettes, with withdrawal (3) PCP dependence Current Visit: Yes (4) Diabetes mellitus, type II, insulin dependent Current Visit: Yes (5) GERD (gastroesophageal reflux disease) Current Visit: Yes Qualifiers: Esophagitis presence: without esophagitis Qualified Code(s): K21.9 - Gastro -esophageal reflux disease without esophagitis
== END 2017-09-07 11:10 | disposition home or self-care (01) | DRG 772 ==
LOC: YASAS 13:58 → Y5N 18:51
PROVIDERS: ADMIT Psychiatry & Neurology Psychiatry; ATTEND Psychiatry & Neurology Psychiatry
PROC: HZ42ZZZ Group Counseling for Substance Abuse Treatment, Cognitive-Behavioral (ICD-10-PCS; principal; 2017-08-22)
DX: F16.20 Hallucinogen dependence, uncomplicated (principal); F17.213 Nicotine dependence, cigarettes, with withdrawal; F31.81 Bipolar II disorder; F41.8 Other specified anxiety disorders; K21.9 Gastro-esophageal reflux disease without esophagitis; E11.43 Type 2 diabetes mellitus with diabetic autonomic (poly)neuropathy; K31.84 Gastroparesis; Z79.4 Long term (current) use of insulin; H91.92 Unspecified hearing loss, left ear; R00.0 Tachycardia, unspecified
CPT/HCPCS: 36415; 80048; 80053; 81003; 82962; 85025; 85027; 86593; 87389; 93005; 93010